=== PATIENT | female | born 1970 | race Two or more races ===

== ENCOUNTER → 2023-12-20 | Outpatient (CLI) | payer BC | END | disposition home or self-care (01) | LOC: LAB 11:58 | PROVIDERS: ATTEND Family Medicine | DX: Z12.11 Encounter for screening for malignant neoplasm of colon (principal) | CPT/HCPCS: 82270 ==

== ENCOUNTER → 2024-05-20 | Outpatient (CLI) | payer BC ==
[2024-05-20 11:09] LABS: Basophils # (auto) 0.1 10 ^3/uL (0-0.2); Basophils % (auto) 1.2 % (0.0-2.0); Eosinophils # (auto) 0.1 10 ^3/uL (0-0.8); Eosinophils % (auto) 1.6 % (0.0-7.0); Hematocrit 46.1 % (36.0-46.0); Hemoglobin 15.9 g/dL (12.2-16.2); Lymphocytes % (auto) 26.6 % (10.0-50.0); Mean Corpuscular Hemoglobin 31.3 pg (28.0-32.0); Mean Corpuscular Hgb Conc. 34.5 g/dL (32.0-36.0); Mean Corpuscular Volume 90.9 fL (80.0-100.0); Monocytes # (auto) 0.5 10 ^3/uL (0-1.3); Monocytes % (auto) 6.9 % (0.0-12.0); Neutrophils # (auto) 4.8 10 ^3/uL (1.6-8.6); Neutrophils % (auto) 63.7 % (37.0-80.0); Nucleated Red Blood Cells % 0.1 %; Platelet Count (auto) 242 10^3/uL (140-450); Red Blood Cells 5.07 10^6/uL (4.0-5.20); Red Cell Distribution Width 12.7 % (11.8-14.3); White Blood Cell 7.5 10^3/uL (4.4-10.8)
[2024-05-20 11:29] LABS: Alanine Aminotransferase 51 U/L (7-40); Alkaline Phosphatase 87 U/L (46-116); Amylase 56 U/L (30-118); Anion Gap 3 (5-15); BUN/Creatinine Ratio 21.4 (10.0-20.0); Blood Urea Nitrogen 12 mg/dL (9-23); Carbon Dioxide 32 mmol/L (20-31); Chloride 105 mmol/L (98-107); Glucose 102 mg/dL (74-106); LDL Cholesterol 113 mg/dL (< 100); Potassium 4.4 mmol/L (3.5-5.1); Sodium 140 mmol/L (136-145); Triglycerides 194 mg/dL (< 150)
[2024-05-20 11:30] LABS: Albumin 4.7 g/dL (3.2-4.8); Aspartate Aminotransferase 26 U/L (13-40); Bilirubin, Total 0.6 mg/dL (0.2-1.0); Cholesterol 182 mg/dL (< 200); HDL Cholesterol 48 mg/dL (40-59); Total Protein 7.5 g/dL (5.7-8.2)
[2024-05-20 11:44] LABS: Urine Blood Negative /uL (Negative); Urine Clarity Clear (Clear); Urine Color Light-Yellow (Yellow); Urine Protein, UAD Negative (Negative); Urine Urobilinogen Normal (Negative); Urine pH 6.5 (5.0-9.0)
[2024-05-20 12:33] LABS: Uric Acid 5.1 mg/dL (3.1-7.8)
== END | disposition home or self-care (01) ==
LOC: LAB 10:29
PROVIDERS: ATTEND Family Medicine
DX: I10 Essential (primary) hypertension (principal); E55.9 Vitamin D deficiency, unspecified; K70.0 Alcoholic fatty liver; R79.89 Other specified abnormal findings of blood chemistry; E78.2 Mixed hyperlipidemia; E03.9 Hypothyroidism, unspecified
CPT/HCPCS: 36415; 80053; 80061; 81003; 82150; 83036; 84443; 84550; 85025

== ENCOUNTER → 2024-10-06 | Outpatient (CLI) | payer BC ==
[2024-10-06 11:16] LABS: Alanine Aminotransferase 32 U/L (7-40); Albumin 4.7 g/dL (3.2-4.8); Alkaline Phosphatase 89 U/L (46-116); Aspartate Aminotransferase 20 U/L (13-40); Blood Urea Nitrogen 12 mg/dL (9-23); Calcium 9.6 mg/dL (8.7-10.4); Carbon Dioxide 27 mmol/L (20-31); Cholesterol 196 mg/dL (< 200); Glucose 104 mg/dL (74-106); LDL Cholesterol 138 mg/dL (< 100); Potassium 4.5 mmol/L (3.5-5.1); Sodium 138 mmol/L (136-145); Total Protein 7.3 g/dL (5.7-8.2); Triglycerides 168 mg/dL (< 150)
[2024-10-06 11:17] LABS: Bilirubin, Total 0.6 mg/dL (0.2-1.0); HDL Cholesterol 44 mg/dL (40-59)
[2024-10-06 11:23] LABS: Anion Gap 5 (5-15); Chloride 106 mmol/L (98-107)
[2024-10-06 11:28] LABS: Uric Acid 5.5 mg/dL (3.1-7.8)
== END | disposition home or self-care (01) ==
LOC: LAB 10:27
PROVIDERS: ATTEND Family Medicine
DX: I10 Essential (primary) hypertension (principal); E03.9 Hypothyroidism, unspecified; E55.9 Vitamin D deficiency, unspecified; E88.819 Insulin resistance, unspecified; R79.89 Other specified abnormal findings of blood chemistry; R94.6 Abnormal results of thyroid function studies
CPT/HCPCS: 36415; 80053; 80061; 83036; 84443; 84550

== ENCOUNTER 2025-01-01 06:00 | Outpatient (CLI) | payer BC | END 2025-01-01 17:00 | disposition home or self-care (01) | LOC: LAB 06:00 | PROVIDERS: ATTEND Family Medicine | DX: Z12.11 Encounter for screening for malignant neoplasm of colon (principal) | CPT/HCPCS: 82270 ==